=== PATIENT | female | born 1945 | race Caucasian/White ===

== ENCOUNTER 2017-06-17 08:32 | Inpatient (IN) ==
--- NOTE | 2017-06-17 09:31 | Emergency Department Note ---
Disposition Clinical Impression: Acute exacerbation of chronic obstructive airways disease, Bronchitis Disposition: Admitted As Inpatient Condition: Fair Referrals: Arlene Pearl, COPING MACHINE ASSEMBLER [Primary Care Provider] - Forms: ED Satisfaction Letter Time of Disposition: 11:09 SOB HPI - General Chief Complaint: ED Shortness of Breath/Dyspnea Stated Complaint: PRIYANK Time Seen by Provider: 06/17/17 09:20 Source: patient, family Mode of arrival: ambulatory Limitations: no limitations Nursing Notes Reviewed: Yes Vital Signs Reviewed: Yes - History of Present Illness Patient is a 71-year-old female a past medical history COPD, CHF, CAD and hypertension that presents the ED with chief complaint increase shortness of breath and productive cough x 5 days. Patient states "I think I have pneumonia" . States identical symptoms previously with pneumonia. States she has been coughing up yellow/green sputum. She denies any fever or chills. She denies any chest pain, weakness, diaphoresis, nausea, vomiting, abdominal pain or any other symptoms/complaints. Patient states she has been exposed to sick people at the store. Patient states she has been using her albuterol inhaler every 4 hours at home which has not helped her shortness of breath. Patient also states that she has been using oxygen for the past day or so secondary to increased shortness of breath. Patient states she is usually not on oxygen at home. Denies any history of PE or DVT. Pt Subjective Complaint: shortness of breath Onset (ago): day(s) Consistency/Duration: gradually worsening Improves with: nothing Worsens with: nothing Known history of: COPD, congestive heart failure Associated symptoms: Reports: denies other symptoms, cough, wheezing. Denies: chest pain, pain with inspiration, fever, sputum production, orthopnea, lower extremity pain, polyuria, polydipsia, parasthesias, palpitations, hemoptysis, diaphoresis, nausea/vomiting, syncope, abdominal pain, rash, sense of impending doom Treatment prior to arrival: oxygen, bronchodilator Cough present: Yes Cough Description: Involuntary Cough Frequency: Intermittent Sputum production: Yes Sputum Amount: Moderate Sputum Color: Green - Related Data Home oxygen amount: none Home Medications Medication Instructions Recorded Confirmed Budesonide/Formoterol 160/4.5 2 puff IH BID 07/22/16 06/17/17 [Symbicort 160/4.5] Carvedilol 12.5 mg PO BID 07/22/16 06/17/17 Furosemide [Lasix] 40 mg PO DAILY 07/22/16 06/17/17 Ipratropium/Albuterol Neb [Duoneb] 3 ml IH Q6H PRN 07/22/16 06/17/17 Lisinopril [Zestril] 10 mg PO DAILY 07/22/16 06/17/17 Potassium Chloride [Klor-Con 8 meq PO DAILY 07/22/16 06/17/17 Sprinkle] Ubidecarenone/Vitamin E Mixed 1 cap PO DAILY 07/22/16 06/17/17 [[id number] E 100 mg-10 Unit Sfg] BuPROPion SR (12 HR) [Wellbutrin 150 mg PO BID 06/17/17 06/17/17 SR] Allergies Allergy/AdvReac Type Severity Reaction Status Date / Time sulfamethoxazole Allergy Rash Verified 06/17/17 08:40 [From Bactrim] trimethoprim [From Bactrim] Allergy Rash Verified 06/17/17 08:40 codeine AdvReac Vomiting Verified 06/17/17 08:40 Hydromorphone [From Dilaudid] AdvReac Hallucinati Verified 06/17/17 08:40 ng All systems ED: reviewed and negative except as stated. Review of Systems: As Per HPI Constitutional: Denies: fever, chills, weakness Eyes: Denies: eye discharge, vision change ENT ED: Denies: throat pain, dental pain, congestion Cardiovascular: Denies: chest pain, palpitations, orthopnea, edema, syncope, paroxysmal nocturnal dyspnea Respiratory: Reports: cough, dyspnea, wheezes, sputum production. Denies: hemoptysis, stridor Gastrointestinal: Denies: abdominal pain, nausea, vomiting, diarrhea, constipation, hematemesis, melena, hematochezia Genitourinary: Denies: urgency, dysuria, frequency, hematuria Musculoskeletal: Denies: back pain, neck pain Integumentary: Denies: rash Neurological: Denies: headache Past Medical History - Past Medical History Source: patient Medical history: Reports: asthma, COPD, hypertension Surgical history: Reports: , orthopedic, other (Carpal tunnel, trigger finger release) Psychiatric history: Reports: anxiety EMBROIDERY SPECIALIST history: Reports: no EMBROIDERY SPECIALIST history - Social History Smoking Status: Light tobacco smoker Smokeless Tobacco Status: No Alcohol use: Reports: none Drug use: Reports: none Physical Exam - General Limitations: no limitations General appearance: alert, in no apparent distress - Head Head exam: atraumatic, normocephalic, normal inspection - Eye Eye exam: Present: normal appearance, PERRL, EOMI - ENT ENT exam: normal exam, normal oropharynx, mucous membranes moist, TM's normal bilaterally - Neck Neck exam: Present: normal inspection, full ROM, trachea midline. Absent: meningismus, lymphadenopathy - Chest Chest inspection: Present: normal inspection, symmetric chest wall rise - Respiratory Respiratory exam: Present: normal lung sounds bilaterally, wheezes. Absent: respiratory distress, stridor, accessory muscle use, prolonged expiratory phase - Cardiovascular Cardiovascular exam: Present: regular rate, normal rhythm, normal heart sounds - Abdominal Exam Abdominal exam: Present: soft, Non-Tender. Absent: tenderness, distention, guarding, rebound, rigidity - Extremities Exam Extremities exam: Present: normal inspection, full ROM. Absent: tenderness, pedal edema - Expanded Lower Extremity Exam Gait: observed and normal - Back Exam Back exam: Present: normal inspection, full ROM. Absent: tenderness - Neurological Exam Neurological exam: Present: alert, oriented X3, CN II-XII intact, normal gait - Psychiatric Psychiatric exam: Present: normal affect, normal mood - Skin Skin exam: Present: warm, dry, intact, normal color. Absent: rash, cyanosis, diaphoresis Course Course Narrative: Patient is a 71-year-old female a past medical history COPD, CHF, CAD and hypertension that presents the ED with chief complaint increase shortness of breath and productive cough x 5 days. Patient states "I think I have pneumonia" . States identical symptoms previously with pneumonia. States she has been coughing up yellow/green sputum. She denies any fever or chills. She denies any chest pain, weakness, diaphoresis, nausea, vomiting, abdominal pain or any other symptoms/complaints. Patient states she has been exposed to sick people at the store. Patient states she has been using her albuterol inhaler every 4 hours at home which has not helped her shortness of breath. Patient also states that she has been using oxygen for the past day or so secondary to increased shortness of breath. Patient states she is usually not on oxygen at home. Denies any history of PE or DVT. Patient is a nontoxic appearing 71-year-old female. Vital stable. Afebrile. Alert and oriented 3. Appears in no acute distress. Heart RRR. Lungs diffuse expiratory wheezing throughout bilateral lung brown. Decreased air movement. Abdomen soft, nontender. Extremities within normal limits. No pedal edema. Neuro no focal neurological deficits noted on exam. Plan to Obtain EKG, chest x-ray and labs. Breathing treatment and steroids ordered. Will reevaluate While patient ambulated to the bathroom she was 85% on room air. CXR:No acute cardiopulmonary process. Trop Negative. EKG sinus rhythm. No changes from previous EKG on 09/03/2016 Influenza A and B-. Mild improvement after steroids and 3 breathing treatments. Plan to admit to medicine for COPD exacerbation versus bronchitis/pneumonia. Levaquin started. Discussed case with hospitalist Dr. Null. He will accept patient. No other request at this time. Patient stable to be transferred to the floor. Pt agrees with treatment plan. Discussed case with Dr. Shipley. He had [id number] time with patient and agrees with my assessment and treatment plan. Vital Signs Temperature 99.1 F 06/17/17 08:37 Pulse Rate 97 06/17/17 08:37 Respiratory Rate 18 06/17/17 08:37 Blood Pressure 139/74 06/17/17 08:37 O2 Sat by Pulse Oximetry 96 06/17/17 08:37 Temperature 99.1 F 06/17/17 08:37 Pulse Rate 97 06/17/17 08:37 Respiratory Rate 18 06/17/17 08:37 Blood Pressure 139/74 06/17/17 08:37 O2 Sat by Pulse Oximetry 96 06/17/17 09:36 Oxygen Delivery Oxygen Delivery Nasal Cannula Shortness of Breath/Dyspnea - Medical Records Medical records reviewed: Yes I reviewed the patient's medical records. - Lab Data Lab results reviewed: Yes I reviewed the patient's lab results. Result diagrams: 06/17/17 09:27 06/17/17 09:27 Lab Results 06/17/17 06/17/17 06/17/17 Range/Units 09:27 09:27 09:27 WBC 10.6 (4.3-11.1) K/mcL RBC 4.47 (3.82-4.97) M/mcL Hgb 13.7 (11.5-15.4) g/dL Hct 40.6 (35.3-44.9) % MCV 90.8 (83.0-100.0) fL MCH 30.6 (28.0-33.3) pg MCHC 33.7 (31.6-35.5) g/dL RDW 13.1 (11.5-14.5) % Plt Count 262 (140-400) K/mcL MPV 9.2 L (9.4-12.4) fL Seg Neutrophils % 48.0 % Band Neutrophils % 20.0 H (0-4) % Lymphocytes % 18.0 % Monocytes % 12.0 % Basophils % 2.0 % Neutrophils # 7.2 (1.6-8.9) K/mcL Lymphocytes # 1.9 (0.6-4.6) K/mcL Monocytes # 1.3 (0.0-1.3) K/mcL Basophils # 0.2 (0.0-0.2) K/mcL Nucleated RBCs/100 WBC 0.2 H (0) /100 WBC Platelet Estimate Normal (Normal) Sodium 132 L (136-145) mEq/L Potassium 4.3 (3.5-5.1) mEq/L Chloride 99 (98-107) mEq/L Carbon Dioxide 24 (23-29) mEq/L BUN 8 (8-23) mg/dL Creatinine 0.56 L (0.60-1.20) mg/dL Est GFR ( Amer) > 60 (> 60) Est GFR (Non-Af Amer) > 60 (> 60) BUN/Creatinine Ratio 14 (6-26) Glucose 141 H (70-105) mg/dL Calculated Osmolality 275 L (280-300) Lactic Acid 1.0 (0.5-2.2) mmol/L Calcium 9.1 (8.6-10.3) mg/dL Troponin I (< 0.04) ng/mL B-Natriuretic Peptide (Less than 100) pg/mL 06/17/17 06/17/17 Range/Units 09:27 09:27 WBC (4.3-11.1) K/mcL RBC (3.82-4.97) M/mcL Hgb (11.5-15.4) g/dL Hct (35.3-44.9) % MCV (83.0-100.0) fL MCH (28.0-33.3) pg MCHC (31.6-35.5) g/dL RDW (11.5-14.5) % Plt Count (140-400) K/mcL MPV (9.4-12.4) fL Seg Neutrophils % % Band Neutrophils % (0-4) % Lymphocytes % % Monocytes % % Basophils % % Neutrophils # (1.6-8.9) K/mcL Lymphocytes # (0.6-4.6) K/mcL Monocytes # (0.0-1.3) K/mcL Basophils # (0.0-0.2) K/mcL Nucleated RBCs/100 WBC (0) /100 WBC Platelet Estimate (Normal) Sodium (136-145) mEq/L Potassium (3.5-5.1) mEq/L Chloride (98-107) mEq/L Carbon Dioxide (23-29) mEq/L BUN (8-23) mg/dL Creatinine (0.60-1.20) mg/dL Est GFR ( Amer) (> 60) Est GFR (Non-Af Amer) (> 60) BUN/Creatinine Ratio (6-26) Glucose (70-105) mg/dL Calculated Osmolality (280-300) Lactic Acid (0.5-2.2) mmol/L Calcium (8.6-10.3) mg/dL Troponin I 0.03 (< 0.04) ng/mL B-Natriuretic Peptide 487 H (Less than 100) pg/mL - Radiology Data Radiology results reviewed: Yes I reviewed the patient's radiology results.
[2017-06-17 09:40] LABS: Hematocrit 40.6 % (35.3-44.9); Hemoglobin 13.7 g/dL (11.5-15.4); Mean Corpuscular HGB Conc 33.7 g/dL (31.6-35.5); Mean Corpuscular Hemoglobin 30.6 pg (28.0-33.3); Mean Corpuscular Volume 90.8 fL (83.0-100.0); Mean Platelet Volume 9.2 fL (9.4-12.4); Nucleated Red Blood Cells 0.2 /100 WBC (0); Platelet Count 262 K/mcL (140-400); Red Blood Count 4.47 M/mcL (3.82-4.97); Red Cell Distribution Width 13.1 % (11.5-14.5)
[2017-06-17 09:52] LABS: BUN/Creatinine Ratio 14 (6-26); Blood Urea Nitrogen 8 mg/dL (8-23); Calcium 9.1 mg/dL (8.6-10.3); Carbon Dioxide 24 mEq/L (23-29); Chloride 99 mEq/L (98-107); Glucose 141 mg/dL (70-105); Osmolality,Calculated 275 (280-300); Potassium 4.3 mEq/L (3.5-5.1); Sodium 132 mEq/L (136-145); eGFR For African Americans > 60 (> 60); eGFR For Non-African Americans > 60 (> 60)
[2017-06-17 09:56] LABS: Basophils # 0.2 K/mcL (0.0-0.2); Lymphocytes # 1.9 K/mcL (0.6-4.6); Monocytes # 1.3 K/mcL (0.0-1.3); Neutrophils # 7.2 K/mcL (1.6-8.9)
[2017-06-17 09:57] LABS: Platelet Estimate Normal (Normal)
[2017-06-17] MEDS ORDERED: Ipratropium/Albuterol Neb 3 ML IH ONE (10:06)
[2017-06-17] MEDS ORDERED: methylPREDNISolone 125 MG/2 ML VIAL IVP ONE (10:06)
[2017-06-17] MEDS ORDERED: Levofloxacin 750 MG/150 ML 750 MG/150 ML BAG IVPB SCH (11:00)
[2017-06-17] MEDS ORDERED: Ondansetron 4 MG/2 ML VIAL IVP PRN (11:01)
[2017-06-17] MEDS ORDERED: *HR* Promethazine 25 MG/ML VIAL IVP PRN (11:01)
[2017-06-17] MEDS ORDERED: *HR* HYDROcodone/Acet 5/325 mg TABLET PO PRN (11:01)
[2017-06-17] MEDS ORDERED: Naloxone 0.4 MG/ML INJ IVP PRN (11:01)
[2017-06-17] MEDS ORDERED: Acetaminophen 325 MG TABLET PO PRN (11:01)
[2017-06-17] MEDS: Ipratropium/Albuterol Neb 3 ML IH SCH ×4 (11:33→23:49)
--- NOTE | 2017-06-17 12:23 | Internal Med History&Physical ---
Date of Encounter: 06/17/17 Time of Encounter: 11:30 Assessment and Plan (1) Acute exacerbation of chronic obstructive airways disease Current visit: Yes Status: Acute Will admit the pt into Med Surg She does have acute purulent bronchitis will start her on empirical abx Levaquin Cont Duoneb JANA + O2 Will try to wean her off the as she tolerated does need high dose IV steroids Reviewed CXR - no infiltrates / consolidations noticed (2) Bronchitis Current visit: Yes Status: Acute mostly bacterial on abx check Sputum cx, Resp viral panel (3) CHF (congestive heart failure) Current visit: Yes Status: Acute she might have chronic CHF..unspecified..No old Echo's to review does take Coreg + lasix at home not in exacerbation however she does have significantly elevated BNP cont PO lasix for now will check 2 D Echo in AM Qualifiers: Heart failure type: unspecified Qualified Code(s): I50.9 - Heart failure, unspecified (4) HTN (hypertension) Current visit: Yes Status: Acute resumed home meds Qualifiers: Hypertension type: essential hypertension Qualified Code(s): I10 - Essential (primary) hypertension (5) Tobacco dependence Current visit: Yes Status: Acute counseled to quit smoking on nicotine patch Internal Medicine - H&P: HPI Chief complaint: Shortness of breath Admitted From: Emergency Dept Plans for Post Hospital Care: Home History of present illness: Ms. Rose is a 71 year old female with known COPD, hypertension, ?? CHF, chronic tobacco dependence and not on home oxygen dependent patient present at emergency room with a progressively worsening shortness of breath since Friday associated with cough and expectoration. She denied any chest pain. She does have cough with yellowish expectoration. She denied any sick contacts at home. She denied any recent travel history. She got pneumonia vaccination this year but denied of taking flu vaccination Past Med Surg Social Fam HX - Past Medical History Medical history: asthma, COPD, hypertension Psychiatric history: anxiety - Past Surgical History Surgical History: , orthopedic, other (Carpal tunnel, trigger finger release) - Social History Smoking Status: Current every day smoker Smokeless Tobacco Status: No Alcohol use: none Drug use: none - Additional Family History Additional family history: Family hsitory reviewed and non contribuitory to current problem. Denied any COPD/lung cancer in the family Internal Medicine - H&P: Meds Budesonide/Formoterol 160/4.5 [Symbicort 160/4.5] 2 puff IH BID 07/22/16 [ History] Carvedilol 12.5 mg PO BID 07/22/16 [History] Furosemide [Lasix] 40 mg PO DAILY 07/22/16 [History] Ipratropium/Albuterol Neb [Duoneb] 3 ml IH Q6H PRN 07/22/16 [History] Lisinopril [Zestril] 10 mg PO DAILY 07/22/16 [History] Potassium Chloride [Klor-Con Sprinkle] 8 meq PO DAILY 07/22/16 [History] Ubidecarenone/Vitamin E Mixed [[id number] E 100 mg-10 Unit Sfg] 1 cap PO DAILY [History] BuPROPion SR (12 HR) [Wellbutrin SR] 150 mg PO BID 06/17/17 [History] 3 Allergy/AdvReac Type Severity Reaction Status Date / Time sulfamethoxazole Allergy Rash Verified 06/17/17 08:40 [From Bactrim] trimethoprim [From Bactrim] Allergy Rash Verified 06/17/17 08:40 codeine AdvReac Vomiting Verified 06/17/17 08:40 Hydromorphone [From Dilaudid] AdvReac Hallucinati Verified 06/17/17 08:40 ng All Systems PM: A 10-system review of systems was performed and is negative for pertinent findings except as documented above in the HPI. Review of systems: All the systems are reviewed everything is benign except the systems and symptoms I mentioned in the history of present illness - Constitutional Vitals: Temp Pulse Resp BP Pulse Ox 99.1 F 120 20 107/65 98 06/17/17 08:37 06/17/17 11:27 06/17/17 11:27 06/17/17 11:27 06/17/17 11:27 General appearance: Present: cooperative, mild distress, A&O X 3, answers questions appropriately Exam: Able to finish full sentence with few pauses - Head Head exam: Present: atraumatic, normal inspection - Neck Neck exam general surgery: Present: supple - Respiratory Respiratory exam: Present: decreased breath sounds, respiratory distress, wheezes (diffuse, severe). Absent: rales, rhonchi - Cardiovascular Cardiovascular exam: Present: +S1, +S2, tachycardia. Absent: systolic murmur - GI/Abdominal GI/Abdominal exam: Present: normal bowel sounds, soft. Absent: distended, rebound, rigid, no peritoneal signs - Extremities Exam Extremities exam: Absent: calf tenderness, pedal edema, tenderness - Back Exam Back exam: Absent: CVA tenderness (L), CVA tenderness (R) - Neurological Exam Neurological exam: Present: alert, oriented X3 - Psychiatric Psychiatric exam: Present: anxious - Skin Skin exam: Absent: rash Internal Med - H&P Results - Labs CBC & Chem 7: 06/17/17 09:27 06/17/17 09:27 Labs: Short CBC 06/17/17 Range/Units 09:27 WBC 10.6 (4.3-11.1) K/mcL Hgb 13.7 (11.5-15.4) g/dL Hct 40.6 (35.3-44.9) % Plt Count 262 (140-400) K/mcL Neutrophils # 7.2 (1.6-8.9) K/mcL BMP 06/17/17 09:27 Sodium 132 L Potassium 4.3 Chloride 99 Carbon Dioxide 24 BUN 8 Creatinine 0.56 L Glucose 141 H Calcium 9.1 Cardiac Enzymes 06/17/17 Range/Units 09:27 Troponin I 0.03 (< 0.04) ng/mL - Impressions ITS Impressions Chest X-Ray 06/17/17 08:41 IMPRESSION: No acute cardiopulmonary process. D/ / 06/17/2017 09:30:03 Neil Garza MD / rylan Interpreting Provider: Neil Garza MD
[2017-06-17] MEDS: Furosemide 40 MG TABLET PO SCH (13:19)
[2017-06-17 15:58] LABS: Adenovirus Not Detected (Not Detect); Bordetella Pertussis Not Detected (Not Detect); Chlamydophila pneumoniae Not Detected (Not Detect); Coronavirus 229E Not Detected (Not Detect); Coronavirus HKU1 Not Detected (Not Detect); Coronavirus NL63 Not Detected (Not Detect); Coronavirus OC43 Not Detected (Not Detect); Human Metapneumovirus Not Detected (Not Detect); Human Rhinovirus/Enterovirus Not Detected (Not Detect); Influenza A Subtype 2009 H1 Not Detected (Not Detect); Influenza A Untypeable Not Detected (Not Detect); Influenza B Not Detected (Not Detect); Mycoplasma pneumoniae Not Detected (Not Detect); Parainfluenza Virus 1 Not Detected (Not Detect); Parainfluenza Virus 2 Not Detected (Not Detect); Parainfluenza Virus 3 Not Detected (Not Detect); Parainfluenza Virus 4 Not Detected (Not Detect); Respiratory Syncytial Virus Not Detected (Not Detect)
[2017-06-17] MEDS: MethylPREDNISolone 40 MG/ML VIAL IVP SCH ×2 (19:26→23:56)
[2017-06-17] MEDS: Budesonide/Formoterol 160/4.5 MDI IH SCH (19:32)
[2017-06-17] MEDS: BuPROPion SR (12 HR) 150 MG TABLET PO SCH (21:22)
[2017-06-18] MEDS: Ipratropium/Albuterol Neb 3 ML IH SCH ×6 (04:27→23:29)
[2017-06-18] MEDS: MethylPREDNISolone 40 MG/ML VIAL IVP SCH ×4 (06:06→23:37)
[2017-06-18] MEDS: *HR* Enoxaparin 40 MG/0.4 ML SYRINGE SQ SCH (06:08)
[2017-06-18 07:04] LABS: Basophils % 0.1 %; Hematocrit 39.5 % (35.3-44.9); Hemoglobin 13.1 g/dL (11.5-15.4); Immature Granulocytes % 0.5 % (0-4); Lymphocytes # 1.1 K/mcL (0.6-4.6); Lymphocytes % 13.8 %; Mean Corpuscular HGB Conc 33.2 g/dL (31.6-35.5); Mean Corpuscular Volume 90.6 fL (83.0-100.0); Mean Platelet Volume 9.4 fL (9.4-12.4); Monocytes # 0.6 K/mcL (0.0-1.3); Neutrophils # 6.3 K/mcL (1.6-8.9); Platelet Count 274 K/mcL (140-400); Red Blood Count 4.36 M/mcL (3.82-4.97); Red Cell Distribution Width 12.9 % (11.5-14.5); Segmented Neutrophils % 78.6 %
[2017-06-18 07:29] LABS: BUN/Creatinine Ratio 20 (6-26); Blood Urea Nitrogen 12 mg/dL (8-23); Calcium 9.4 mg/dL (8.6-10.3); Carbon Dioxide 29 mEq/L (23-29); Chloride 97 mEq/L (98-107); Glucose 184 mg/dL (70-105); Osmolality,Calculated 281 (280-300); Potassium 5.3 mEq/L (3.5-5.1); Sodium 133 mEq/L (136-145); eGFR For African Americans > 60 (> 60); eGFR For Non-African Americans > 60 (> 60)
[2017-06-18] MEDS: Budesonide/Formoterol 160/4.5 MDI IH SCH ×2 (07:44→20:12)
[2017-06-18] MEDS: BuPROPion SR (12 HR) 150 MG TABLET PO SCH ×2 (09:12→21:35)
[2017-06-18] MEDS: Furosemide 40 MG TABLET PO SCH (09:12)
[2017-06-18] MEDS: Levofloxacin 750 MG/150 ML 750 MG/150 ML BAG IVPB SCH (09:13)
[2017-06-18] MEDS: VITAMIN E MIXED PO SCH (09:13)
[2017-06-18] MEDS: UBIDECARENONE PO SCH (09:13)
--- NOTE | 2017-06-18 15:07 | Internal Med Progress Note ---
Date of Encounter: 06/18/17 Time of Encounter: 15:05 - Assessment and plan (1) Acute exacerbation of chronic obstructive airways disease Current Visit: Yes Status: Acute Assessment and plan: Patient remains an exacerbation of his known COPD. Continue IV steroids, Acedontrell's Follow-up with pulmonary as an outpatient. She is requesting to be set up with a pulmonary group closer to her home. O2 to maintain sats greater than 88% she is on no home oxygen. She is currently on 3 L. (2) Bronchitis Current Visit: Yes Status: Acute Assessment and plan: Acute purulent bacterial bronchitis Continue Levaquin Tessalon for her cough Influenza-type A-V panel is negative Sputum did not meet acceptability criteria for culture Legionella and S pneumoniae antigens are negative Chest x-ray reported as no acute cardiopulmonary process Respiratory infectious panel negative (3) CHF (congestive heart failure) Current Visit: Yes Status: Acute Assessment and plan: Coreg and Lasix at home Not in exacerbation BNP was elevated at 487 and rechecked at 534. Systolic/diastolic CHF Continue Lasix 40 by mouth daily which she takes at home. Echocardiogram reviewed with LVEF 45-50%, mild global LV systolic dysfunction, diastolic dysfunction with elevated filling pressures. Normal right ventricular structure and function Mild mitral, tricuspid regurgitation No pulmonary hypertension All wall segments showed normal motion Qualifiers: Heart failure type: unspecified Qualified Code(s): I50.9 - Heart failure, unspecified (4) HTN (hypertension) Current Visit: Yes Status: Acute Assessment and plan: Blood pressure is stable, continue home medications Qualifiers: Hypertension type: essential hypertension Qualified Code(s): I10 - Essential (primary) hypertension (5) Tobacco dependence Current Visit: Yes Status: Acute Assessment and plan: Looking cessation advised Continue nicotine patch (6) DVT prophylaxis Current Visit: Yes Status: Acute Assessment and plan: lovenox - Subjective Interval history: Patient really thought she should go home today but after a discussion she has agreed to stay for 1 more day. She denies any chest pain. She states her shortness of breath is getting better. She thinks her lungs overall are little better but not back to her baseline yet. She is also complaining about being a little bit dry and asked the nurse to having a bag of saline. Explained she is on Lasix for some volume overload. - Constitutional Vitals: Temp Pulse Resp BP Pulse Ox 98.8 F 91 14 128/73 95 06/18/17 11:28 06/18/17 11:28 06/18/17 11:28 06/18/17 11:28 06/18/17 11:28 General appearance: Present: cooperative, mild distress, A&O X 3, pleasant, answers questions appropriately - Head Head exam: Present: atraumatic, normocephalic - Eye Eye exam: Present: PERRL, conjuntiva pink, sclera anicteric Pupils: Present: PERRL - Neck Neck exam general surgery: Present: supple, trachea midline. Absent: lymphadenopathy - Respiratory Respiratory exam: Present: decreased breath sounds, prolonged expiratory phase, wheezes. Absent: accessory muscle use, rales, rhonchi - Cardiovascular Cardiovascular exam: Present: RRR, +S1, +S2. Absent: diastolic murmur, gallop, rubs, systolic murmur - GI/Abdominal GI/Abdominal exam: Present: normal bowel sounds, soft, no peritoneal signs. Absent: distended, tenderness - Extremities Exam Extremities exam: Present: warm, radial pulses palpable and symmetrical. Absent : calf tenderness, cyanotic, pedal edema - Neurological Exam Neurological exam: Present: CN II-XII intact, oriented X3, no focal deficits. Absent: pronater drift, facial droop, speech deficit - Skin Skin exam: Present: dry, intact, warm Internal Medicine: Result - Labs CBC & Chem 7: 06/18/17 06:36 06/18/17 06:36 Labs: Short CBC 06/18/17 Range/Units 06:36 WBC 8.0 (4.3-11.1) K/mcL Hgb 13.1 (11.5-15.4) g/dL Hct 39.5 (35.3-44.9) % Plt Count 274 (140-400) K/mcL Neutrophils # 6.3 (1.6-8.9) K/mcL BMP 06/18/17 06:36 Sodium 133 L Potassium 5.3 H Chloride 97 L Carbon Dioxide 29 BUN 12 Creatinine 0.60 Glucose 184 H Calcium 9.4 Consult Discharge Plan - Plan Referrals: Arlene Pearl, CALENDER WORKER HELPER [Primary Care Provider] -
[2017-06-19] MEDS: Ipratropium/Albuterol Neb 3 ML IH SCH ×3 (03:43→11:27)
[2017-06-19] MEDS: MethylPREDNISolone 40 MG/ML VIAL IVP SCH ×2 (06:10→12:01)
[2017-06-19] MEDS: *HR* Enoxaparin 40 MG/0.4 ML SYRINGE SQ SCH (06:10)
[2017-06-19] MEDS: Budesonide/Formoterol 160/4.5 MDI IH SCH (07:54)
[2017-06-19] MEDS: Levofloxacin 750 MG/150 ML 750 MG/150 ML BAG IVPB SCH (09:03)
[2017-06-19] MEDS: Furosemide 40 MG TABLET PO SCH (09:04)
[2017-06-19] MEDS: VITAMIN E MIXED PO SCH (09:04)
[2017-06-19] MEDS: BuPROPion SR (12 HR) 150 MG TABLET PO SCH (09:04)
[2017-06-19] MEDS: UBIDECARENONE PO SCH (09:04)
[2017-06-19 09:59] LABS: BUN/Creatinine Ratio 25 (6-26); Blood Urea Nitrogen 18 mg/dL (8-23); Calcium 9.6 mg/dL (8.6-10.3); Carbon Dioxide 31 mEq/L (23-29); Chloride 95 mEq/L (98-107); Glucose 206 mg/dL (70-105); Osmolality,Calculated 286 (280-300); Potassium 4.4 mEq/L (3.5-5.1); Sodium 134 mEq/L (136-145); eGFR For African Americans > 60 (> 60); eGFR For Non-African Americans > 60 (> 60)
[2017-06-19 11:22] VITALS: BP 134/71
--- NOTE | 2017-06-19 11:24 | Discharge Summary ---
Date of Encounter: 06/19/17 Time of Encounter: 11:22 - Discharge Diagnosis (1) Acute exacerbation of chronic obstructive airways disease Priority: Primary Status: Acute Comments: Patient an exacerbation of known COPD. Switch to prednisone taper, has home nebulizer and DuoNeb's Follow-up with pulmonary as an outpatient. She is requesting to be set up with a pulmonary group closer to her home. O2 to maintain sats greater than 88% she has home oxygen. She is currently on 3 L. (2) Bronchitis Priority: Primary Status: Acute Comments: Acute purulent bacterial bronchitis Continue Levaquin to complete 7 day course Tessalon for her cough Influenza-type A-V panel is negative Sputum did not meet acceptability criteria for culture Legionella and S pneumoniae antigens are negative Chest x-ray reported as no acute cardiopulmonary process Respiratory infectious panel negative (3) CHF (congestive heart failure) Priority: Secondary Status: Chronic Comments: Coreg and Lasix - continue as at home Not in exacerbation BNP was elevated at 487 and rechecked at 534. Systolic/diastolic CHF Continue Lasix 40 by mouth daily Echo reviewed with diastoloic and systolic dysfunction LVEF 45 to 50% Qualifiers: Heart failure type: combined systolic and diastolic Heart failure chronicity: chronic Qualified Code(s): I50.42 - Chronic combined systolic ( congestive) and diastolic (congestive) heart failure (4) HTN (hypertension) Priority: Secondary Status: Chronic Comments: blood pressure stable, 134/71 Qualifiers: Hypertension type: essential hypertension Qualified Code(s): I10 - Essential (primary) hypertension (5) Tobacco dependence Priority: Secondary Status: Chronic Comments: cessation Hospital course: Ms. Rose is a 71 year old female with known COPD, hypertension, systolic diastolic CHF, chronic tobacco dependence and home oxygen dependence at 3 L nasal cannula. Patient presented to the emergency room with progressively worsening shortness of breath since Friday associated with cough and expectoration of thick yellow sputum. She had no chest pain. She denied any sick contacts at home or recent travel. She got her pneumonia vaccination but denied taking a flu vaccine. She was treated for a flare of COPD and acute bronchitis. She will be discharged on Levaquin to complete a 7 day course. She will also be sent home on a prednisone taper. She has a home nebulizer and home oxygen at this time. She requires no home health services. She will follow up with pulmonary in her primary care doctor as appointments have been set. Smoking cessation and she states she only smokes a few cigarettes a day. She said it is much better than her previous one pack per day. She is anxious for discharge. Reviewed labs and echocardiogram report with the patient. Discharge discussed with: patient, nurse, case management Time spent discussing smoking cessation with patient: 3 to 10 minutes - Time Spent with Patient Total time spent providing and/or coordinating discharge services: Less than 30 minutes - Discharge Medications Prescriptions: Levofloxacin [Levaquin] 750 mg PO DAILY 5 Days #5 tablet predniSONE [PredniSONE] 10 mg PO DAILY #30 tablet Home Medications: Budesonide/Formoterol 160/4.5 [Symbicort 160/4.5] 2 puff IH BID 07/22/16 [ History] Carvedilol 12.5 mg PO BID 07/22/16 [History] Furosemide [Lasix] 40 mg PO DAILY 07/22/16 [History] Ipratropium/Albuterol Neb [Duoneb] 3 ml IH Q6H PRN 07/22/16 [History] Lisinopril [Zestril] 10 mg PO DAILY 07/22/16 [History] Potassium Chloride [Klor-Con Sprinkle] 8 meq PO DAILY 07/22/16 [History] Ubidecarenone/Vitamin E Mixed [Rnh11-Zmp E 100 mg-10 Unit Sfg] 1 cap PO DAILY [History] BuPROPion SR (12 HR) [Wellbutrin SR] 150 mg PO BID 06/17/17 [History] Levofloxacin [Levaquin] 750 mg PO DAILY 5 Days #5 tablet 06/19/17 [Rx] predniSONE [PredniSONE] 10 mg PO DAILY #30 tablet 06/19/17 [Rx] Allergies/Adverse Reactions: 3 Allergy/AdvReac Type Severity Reaction Status Date / Time sulfamethoxazole Allergy Rash Verified 06/17/17 08:40 [From Bactrim] trimethoprim [From Bactrim] Allergy Rash Verified 06/17/17 08:40 codeine AdvReac Vomiting Verified 06/17/17 08:40 Hydromorphone [From Dilaudid] AdvReac Hallucinati Verified 06/17/17 08:40 ng Date of admission: 06/17/17 12:36 Primary care physician: Ali N Houston, HOSPITAL [employer]ITY OFFICER Discharging clinician: Swapna Lopez Anticipated date of discharge: 06/19/17 - Constitutional Vitals: Temp Pulse Resp BP Pulse Ox 98.7 F 79 16 110/64 94 06/19/17 07:16 06/19/17 07:16 06/19/17 07:56 06/19/17 07:16 06/19/17 07:56 General appearance: Present: cooperative, A&O X 3, pleasant, answers questions appropriately - Head Head exam: Present: atraumatic, normocephalic - Eye Eye exam: Present: PERRL, conjuntiva pink, sclera anicteric Pupils: Present: PERRL - Neck Neck exam general surgery: Present: supple, trachea midline. Absent: lymphadenopathy - Respiratory Respiratory exam: Present: decreased breath sounds, CTAB. Absent: accessory muscle use, rales, rhonchi, wheezes - Cardiovascular Cardiovascular exam: Present: RRR, +S1, +S2. Absent: diastolic murmur, gallop, rubs, systolic murmur - GI/Abdominal GI/Abdominal exam: Present: normal bowel sounds, soft, no peritoneal signs. Absent: distended, tenderness - Extremities Exam Extremities exam: Present: warm, radial pulses palpable and symmetrical. Absent : calf tenderness, cyanotic, pedal edema, tenderness - Neurological Exam Neurological exam: Present: alert, CN II-XII intact, normal gait, oriented X3, no focal deficits. Absent: pronater drift, facial droop, speech deficit - Skin Skin exam: Present: dry, intact, warm - Patient Status Disposition: Home, Self-Care Condition: Good Functional capacity at discharge: independent ambulation Overall status at discharge: patient is progressing back to baseline - Discharge Instructions Follow Up With: [facility] [Provider Group] - 07/24/17 2:30 pm Arlene Pearl CNP [Primary Care Provider] - 06/27/17 10:30 am Additional Instructions: follow up with pulmonary, complete antibiotic and steroid course. follow up with cardiology as scheduled - Diet and Activity Activity: increase activity as tolerated, resume usual activities as tolerated Diet: advance to your usual diet
--- NOTE | 2017-06-19 20:16 | Electrocardiograph Report ---
[address] [place] [address] Test Date: 2017-06-17 Pat Name: Denise Rose Department: [id number] Room: 3B33 Gender: F Battery Builder: MSC : [id number] Requested By: Adam Shipley Order Number: [id number] Reading MD: Elizabeth Riggins Measurements Intervals [place] Rate: 92 P: 72 CT: 158 QRS: 56 QRSD: 77 T: 91 QT: 344 QTc: 394 Interpretive Statements SINUS RHYTHM POSSIBLE LEFT ATRIAL ENLARGEMENT SEPTAL MYOCARDIAL INFARCTION, PROBABLY OLD Electronically Signed On 06-19-2017 20:14:14 EST by Elizabeth Riggins
[2017-06-21] MEDS ORDERED: Levofloxacin 750 MG/150 ML 750 MG/150 ML BAG IVPB SCH (09:00)
== END 2017-06-19 14:02 | disposition home or self-care (01) | DRG 191 ==
LOC: EMEROO 08:32 → 3BNU 12:36
PROVIDERS: ADMIT Registered Nurse; ATTEND Registered Nurse

== ENCOUNTER 2021-04-28 22:28 | Inpatient (IN) ==
[2021-04-29] MEDS ORDERED: Artificial Tears SOLN 15 ML BOTTLE BOTH EYES PRN (04:54)
[2021-04-29] MEDS: FentaNYL (PF) 1,000 MCG/100 ML IV.SOLN IVC SCH ×2 (05:36→19:43)
[2021-04-29] MEDS ORDERED: Perflutren Lipid Microsphere 1.3 ML in 0.9 % Sodium Chloride 8.7 ML IVP PRN ×2 (05:36→05:54)
[2021-04-29 05:37] LABS: ABG Base Excess 8 mEq/L (-2 to 3); ABG HCO3 32 mEq/L (21-27); ABG Oxygen Saturation 100 % (95-98); ABG PCO2 41 mmHg (35-45); ABG PO2 172 mmHg (85-104); ABG TCO2 33 mEq/L (20-26); Blood Gas VT 420 cc
[2021-04-29 05:56] LABS: VBG Ionized Calcium 1.11 mmol/L (1.15-1.35)
[2021-04-29 06:00] LABS: Basophils % 0.1 %; Hematocrit 39.8 % (35.3-44.9); Hemoglobin 12.6 g/dL (11.5-15.4); Immature Granulocytes % 0.3 % (0-4); Lymphocytes # 0.8 K/mcL (0.6-4.6); Lymphocytes % 7.6 %; Mean Corpuscular HGB Conc 31.7 g/dL (31.6-35.5); Mean Corpuscular Hemoglobin 30.7 pg (28.0-33.3); Mean Corpuscular Volume 97.1 fL (83.0-100.0); Mean Platelet Volume 9.8 fL (9.4-12.4); Monocytes # 0.8 K/mcL (0.0-1.3); Monocytes % 7.9 %; Neutrophils # 8.4 K/mcL (1.6-8.9); Platelet Count 195 K/mcL (140-400); Red Cell Distribution Width 14.6 % (11.5-14.5); Segmented Neutrophils % 84.1 %
[2021-04-29] MEDS: Pantoprazole 40 MG VIAL IVP SCH (06:04)
[2021-04-29 06:11] LABS: INR 1.7; Prothrombin Time 18.8 Seconds (9.4-12.1)
[2021-04-29] MEDS: Azithromycin 500 MG in 0.9 % Sodium Chloride 250 ML IVPB SCH (06:12)
[2021-04-29] MEDS: cefTRIAXone 1,000 MG in 0.9 % Sodium Chloride Mini Bag 100 ML IVPB SCH ×2 (06:12→18:51)
[2021-04-29 06:21] LABS: Creatine Kinase 41 Units/L (30-223)
[2021-04-29 07:06] LABS: Alanine Aminotransferase 16 Units/L (7-52); Albumin 3.4 g/dL (3.5-5.7); Albumin/Globulin Ratio 1.4 (1.1-2.2); Alkaline Phosphatase 51 Units/L (34-104); Aspartate Amino Transferase 22 Units/L (13-39); BUN/Creatinine Ratio 31 (6-26); Bilirubin,Direct 0.1 mg/dL (0.0-0.2); Bilirubin,Indirect 0.2 mg/dL (0.0-1.0); Bilirubin,Total 0.3 mg/dL (0.3-1.0); Blood Urea Nitrogen 23 mg/dL (8-23); Calcium 8.4 mg/dL (8.6-10.3); Carbon Dioxide 38 mEq/L (23-29); Chloride 102 mEq/L (98-107); Globulin 2.5 g/dL (2.4-3.5); Glucose 112 mg/dL (70-105); Lactate Dehydrogenase 190 Units/L (140-271); Osmolality,Calculated 292 (280-300); Potassium 4.5 mEq/L (3.5-5.1); Sodium 139 mEq/L (136-145); Total Protein 5.9 g/dL (6.4-8.9); eGFR For African Americans > 60 (> 60); eGFR For Non-African Americans > 60 (> 60)
[2021-04-29] MEDS: Artificial Tears SOLN 15 ML BOTTLE BOTH EYES SCH ×5 (08:34→23:03)
[2021-04-29] MEDS: Chlorhexidine Rinse 15 ML MOUTHWASH MM SCH ×2 (08:35→19:51)
[2021-04-29] MEDS: Dexamethasone Sodium Phos/PF 10 MG/ML VIAL IVP SCH (08:35)
[2021-04-29] MEDS: Furosemide 40 MG/4 ML VIAL IVP SCH (08:37)
[2021-04-29 09:01] LABS: Ferritin 348 ng/mL (10-120)
[2021-04-29] MEDS ORDERED: Albuterol 2.5 MG/3 ML NEBULIZER IH SCH (10:00)
[2021-04-29 10:05] LABS: C-Reactive Protein 101 mg/L (Less than 10)
[2021-04-29] MEDS: Budesonide/Formoterol 160/4.5 1 PUFF INH IH SCH ×2 (11:39→20:30)
[2021-04-29] MEDS ORDERED: *HR* Heparin 5,000 UNIT/ML VIAL IVP PRN ×2 (15:23)
[2021-04-29] MEDS ORDERED: *HR* Heparin 5,000 UNIT/ML VIAL IVP ONE (15:23)
[2021-04-29] MEDS: Albuterol 2.5 MG/3 ML NEBULIZER IH SCH ×2 (15:54→22:49)
[2021-04-29] MEDS: Heparin 25,000UNIT/250ML 1/2NS 25,000 UNIT/250 ML IV.SOLN IVC SCH (18:01)
[2021-04-29] MEDS: Midazolam HCl 50 MG/100 ML IV.SOLN IVC SCH ×2 (19:41→23:04)
[2021-04-29] MEDS: Norepinephrine 4 MG/254 ML IV.SOLN IVC SCH ×3 (19:41→23:04)
[2021-04-30] MEDS: Artificial Tears SOLN 15 ML BOTTLE BOTH EYES SCH ×6 (03:21→23:40)
[2021-04-30 03:30] LABS: Basophils % 0.2 %; Hematocrit 40.3 % (35.3-44.9); Hemoglobin 12.7 g/dL (11.5-15.4); Immature Granulocytes % 0.3 % (0-4); Lymphocytes # 0.8 K/mcL (0.6-4.6); Lymphocytes % 11.8 %; Mean Corpuscular HGB Conc 31.5 g/dL (31.6-35.5); Mean Corpuscular Hemoglobin 30.3 pg (28.0-33.3); Mean Corpuscular Volume 96.2 fL (83.0-100.0); Mean Platelet Volume 10.2 fL (9.4-12.4); Monocytes # 0.5 K/mcL (0.0-1.3); Monocytes % 7.2 %; Neutrophils # 5.3 K/mcL (1.6-8.9); Platelet Count 183 K/mcL (140-400); Red Blood Count 4.19 M/mcL (3.82-4.97); Red Cell Distribution Width 14.6 % (11.5-14.5); Segmented Neutrophils % 80.5 %; White Blood Count 6.6 K/mcL (4.3-11.1)
[2021-04-30 03:38] LABS: Heparin anti-factor XA UFH 0.47 IU/mL (0.30-0.70); INR 1.5; Prothrombin Time 16.6 Seconds (9.4-12.1)
[2021-04-30 03:40] LABS: Activated Partial Thrombo Time 61.7 Seconds (26.0-36.0)
[2021-04-30 03:51] LABS: BUN/Creatinine Ratio 46 (6-26); Blood Urea Nitrogen 35 mg/dL (8-23); Calcium 8.4 mg/dL (8.6-10.3); Carbon Dioxide 36 mEq/L (23-29); Chloride 102 mEq/L (98-107); Glucose 138 mg/dL (70-105); Magnesium 2.3 mg/dL (1.6-2.6); Osmolality,Calculated 300 (280-300); Potassium 4.5 mEq/L (3.5-5.1); Sodium 140 mEq/L (136-145); eGFR For African Americans > 60 (> 60); eGFR For Non-African Americans > 60 (> 60)
[2021-04-30 03:56] LABS: Troponin I 0.17 ng/mL (< 0.04)
[2021-04-30 04:45] LABS: ABG Base Excess 8 mEq/L (-2 to 3); ABG HCO3 35 mEq/L (21-27); ABG Oxygen Saturation 93 % (95-98); ABG PCO2 59 mmHg (35-45); ABG PH 7.39 pH Units (7.32-7.45); ABG PO2 72 mmHg (85-104); ABG TCO2 37 mEq/L (20-26); Blood Gas VT 340 cc
[2021-04-30] MEDS: cefTRIAXone 1,000 MG in 0.9 % Sodium Chloride Mini Bag 100 ML IVPB SCH (05:00)
[2021-04-30] MEDS: Azithromycin 500 MG in 0.9 % Sodium Chloride 250 ML IVPB SCH (05:01)
[2021-04-30] MEDS: Budesonide/Formoterol 160/4.5 1 PUFF INH IH SCH ×2 (07:26→20:48)
[2021-04-30] MEDS: Chlorhexidine Rinse 15 ML MOUTHWASH MM SCH ×2 (07:50→20:14)
[2021-04-30] MEDS: Dexamethasone Sodium Phos/PF 10 MG/ML VIAL IVP SCH (07:50)
[2021-04-30] MEDS: Furosemide 40 MG/4 ML VIAL IVP SCH (07:50)
[2021-04-30] MEDS: Pantoprazole 40 MG VIAL IVP SCH (07:51)
[2021-04-30] MEDS: Norepinephrine 4 MG/254 ML IV.SOLN IVC SCH (07:51)
[2021-04-30] MEDS ORDERED: Dexmedetomidine HCl 400 MCG/100 ML MLS IVC SCH (08:45)
[2021-04-30] MEDS: Dexmedetomidine HCl 400 MCG/100 ML MLS IVC SCH ×2 (10:18→15:00)
[2021-05-01] MEDS: FentaNYL (PF) 1,000 MCG/100 ML IV.SOLN IVC SCH ×2 (01:40→17:00)
[2021-05-01] MEDS: Heparin 25,000UNIT/250ML 1/2NS 25,000 UNIT/250 ML IV.SOLN IVC SCH (01:46)
[2021-05-01 04:09] LABS: ABG Base Excess 8 mEq/L (-2 to 3); ABG HCO3 36 mEq/L (21-27); ABG Oxygen Saturation 95 % (95-98); ABG PCO2 62 mmHg (35-45); ABG PH 7.37 pH Units (7.32-7.45); ABG PO2 78 mmHg (85-104); ABG TCO2 38 mEq/L (20-26); Blood Gas VT 340 cc
[2021-05-01 04:48] LABS: VBG Ionized Calcium 1.08 mmol/L (1.15-1.35)
[2021-05-01 04:49] LABS: Basophils % 0.3 %; Hematocrit 42.9 % (35.3-44.9); Hemoglobin 13.6 g/dL (11.5-15.4); Immature Granulocytes % 1.3 % (0-4); Lymphocytes % 16.6 %; Mean Corpuscular HGB Conc 31.7 g/dL (31.6-35.5); Mean Corpuscular Hemoglobin 30.4 pg (28.0-33.3); Mean Corpuscular Volume 95.8 fL (83.0-100.0); Mean Platelet Volume 10.1 fL (9.4-12.4); Monocytes # 0.7 K/mcL (0.0-1.3); Monocytes % 11.1 %; Neutrophils # 4.4 K/mcL (1.6-8.9); Platelet Count 161 K/mcL (140-400); Red Blood Count 4.48 M/mcL (3.82-4.97); Red Cell Distribution Width 14.4 % (11.5-14.5); Segmented Neutrophils % 70.7 %; White Blood Count 6.2 K/mcL (4.3-11.1)
[2021-05-01] MEDS: Artificial Tears SOLN 15 ML BOTTLE BOTH EYES SCH ×6 (04:52→23:13)
[2021-05-01 05:06] LABS: Calcium 8.4 mg/dL (8.6-10.3); Carbon Dioxide 36 mEq/L (23-29); Chloride 104 mEq/L (98-107); Glucose 164 mg/dL (70-105); Magnesium 2.4 mg/dL (1.6-2.6); Phosphorous 3.6 mg/dL (2.7-4.5); Potassium 4.1 mEq/L (3.5-5.1); Sodium 141 mEq/L (136-145); eGFR For African Americans > 60 (> 60); eGFR For Non-African Americans > 60 (> 60)
[2021-05-01 05:13] LABS: BUN/Creatinine Ratio 65 (6-26); Blood Urea Nitrogen 46 mg/dL (8-23); Osmolality,Calculated 308 (280-300)
[2021-05-01] MEDS: Azithromycin 500 MG in 0.9 % Sodium Chloride 250 ML IVPB SCH (06:00)
[2021-05-01] MEDS: Norepinephrine 4 MG/254 ML IV.SOLN IVC SCH ×4 (07:16→20:51)
[2021-05-01] MEDS: Midazolam HCl 50 MG/100 ML IV.SOLN IVC SCH (07:17)
[2021-05-01] MEDS: Budesonide/Formoterol 160/4.5 1 PUFF INH IH SCH ×3 (07:24→20:02)
[2021-05-01] MEDS: Chlorhexidine Rinse 15 ML MOUTHWASH MM SCH ×2 (08:08→20:02)
[2021-05-01] MEDS: Furosemide 40 MG/4 ML VIAL IVP SCH (08:09)
[2021-05-01] MEDS: cefTRIAXone 1,000 MG in 0.9 % Sodium Chloride Mini Bag 100 ML IVPB SCH (08:10)
[2021-05-01] MEDS: Pantoprazole 40 MG VIAL IVP SCH (08:10)
[2021-05-01] MEDS ORDERED: Dexamethasone Sodium Phos/PF 10 MG/ML VIAL IVP SCH (09:00)
[2021-05-01] MEDS ORDERED: Furosemide 20 MG/2 ML VIAL IVP ONE (09:10)
[2021-05-01 09:55] LABS: ABG Base Excess 8 mEq/L (-2 to 3); ABG HCO3 37 mEq/L (21-27); ABG Oxygen Saturation 89 % (95-98); ABG PCO2 71 mmHg (35-45); ABG PH 7.32 pH Units (7.32-7.45); ABG PO2 65 mmHg (85-104); ABG TCO2 39 mEq/L (20-26); Blood Gas Modality CPAP/PS; Blood Gas Pressure Support 8 cm H2O
[2021-05-01] MEDS: Ondansetron 4 MG/2 ML VIAL IVP PRN ×2 (15:30→23:21)
[2021-05-01] MEDS: *HR* Metoprolol 5 MG/5 ML VIAL IVP PRN ×2 (15:44→23:44)
[2021-05-01] MEDS ORDERED: *HR* Enoxaparin 40 MG/0.4 ML SYRINGE SQ ONE (16:00)
[2021-05-01] MEDS: Dexmedetomidine HCl 400 MCG/100 ML MLS IVC SCH (20:01)
[2021-05-02 04:18] LABS: VBG Ionized Calcium 1.08 mmol/L (1.15-1.35)
[2021-05-02 04:18] LABS: Basophils % 0.2 %; Hematocrit 41.7 % (35.3-44.9); Hemoglobin 13.1 g/dL (11.5-15.4); Immature Granulocytes % 1.1 % (0-4); Lymphocytes # 0.9 K/mcL (0.6-4.6); Lymphocytes % 10.3 %; Mean Corpuscular HGB Conc 31.4 g/dL (31.6-35.5); Mean Corpuscular Hemoglobin 30.2 pg (28.0-33.3); Mean Corpuscular Volume 96.1 fL (83.0-100.0); Mean Platelet Volume 10.4 fL (9.4-12.4); Monocytes # 0.9 K/mcL (0.0-1.3); Monocytes % 10.2 %; Neutrophils # 6.8 K/mcL (1.6-8.9); Platelet Count 169 K/mcL (140-400); Red Blood Count 4.34 M/mcL (3.82-4.97); Segmented Neutrophils % 78.2 %; White Blood Count 8.8 K/mcL (4.3-11.1)
[2021-05-02 04:33] LABS: BUN/Creatinine Ratio 59 (6-26); Blood Urea Nitrogen 41 mg/dL (8-23); Calcium 8.3 mg/dL (8.6-10.3); Carbon Dioxide 37 mEq/L (23-29); Chloride 101 mEq/L (98-107); Glucose 126 mg/dL (70-105); Magnesium 2.2 mg/dL (1.6-2.6); Osmolality,Calculated 308 (280-300); Phosphorous 2.8 mg/dL (2.7-4.5); Potassium 4.3 mEq/L (3.5-5.1); Sodium 143 mEq/L (136-145); eGFR For African Americans > 60 (> 60); eGFR For Non-African Americans > 60 (> 60)
[2021-05-02] MEDS: Midazolam HCl 50 MG/100 ML IV.SOLN IVC SCH (05:15)
[2021-05-02] MEDS: Artificial Tears SOLN 15 ML BOTTLE BOTH EYES SCH ×4 (05:16→21:35)
[2021-05-02] MEDS: Norepinephrine 4 MG/254 ML IV.SOLN IVC SCH ×2 (05:16→16:48)
[2021-05-02] MEDS: Azithromycin 500 MG in 0.9 % Sodium Chloride 250 ML IVPB SCH (05:26)
[2021-05-02] MEDS: *HR* Metoprolol 5 MG/5 ML VIAL IVP PRN (05:26)
[2021-05-02] MEDS ORDERED: *HR* Enoxaparin 40 MG/0.4 ML SYRINGE SQ SCH (06:00)
[2021-05-02] MEDS: Budesonide/Formoterol 160/4.5 1 PUFF INH IH SCH ×2 (07:41→19:56)
[2021-05-02] MEDS: cefTRIAXone 1,000 MG in 0.9 % Sodium Chloride Mini Bag 100 ML IVPB SCH (08:18)
[2021-05-02] MEDS: Pantoprazole 40 MG VIAL IVP SCH (08:20)
[2021-05-02] MEDS: Chlorhexidine Rinse 15 ML MOUTHWASH MM SCH (08:21)
[2021-05-02] MEDS: Calcium Gluconate 1gm/50mL 1 GM/50 ML BAG IVPB SCH ×2 (08:21→09:19)
[2021-05-02] MEDS ORDERED: Dexamethasone Sodium Phos/PF 10 MG/ML VIAL IVP SCH (09:00)
[2021-05-02] MEDS ORDERED: Furosemide 20 MG/2 ML VIAL IVP SCH (10:30)
[2021-05-02] MEDS ORDERED: Perflutren Lipid Microsphere 1.3 ML in 0.9 % Sodium Chloride 8.7 ML IVP PRN (10:45)
[2021-05-02] MEDS: Ipratropium/Albuterol Neb 3 ML IH SCH ×2 (11:41→15:10)
[2021-05-02] MEDS ORDERED: lisinopriL 5 MG TABLET PO SCH (11:45)
[2021-05-02] MEDS: FentaNYL (PF) 1,000 MCG/100 ML IV.SOLN IVC SCH (13:02)
[2021-05-02] MEDS: Dexmedetomidine HCl 400 MCG/100 ML MLS IVC SCH (13:02)
[2021-05-02] MEDS ORDERED: *HR* Metoprolol 5 MG/5 ML VIAL IVP PRN (17:24)
[2021-05-02] MEDS ORDERED: Ondansetron 4 MG/2 ML VIAL IVP PRN (17:24)
[2021-05-02] MEDS: Acetaminophen 325 MG TABLET PO PRN (19:53)
[2021-05-02] MEDS ORDERED: Ipratropium/Albuterol Neb 3 ML IH SCH (20:00)
[2021-05-03] MEDS: Melatonin 3 MG TABLET PO PRN ×2 (00:18→21:34)
[2021-05-03 04:56] LABS: Basophils % 0.2 %; Hematocrit 39.7 % (35.3-44.9); Hemoglobin 13.1 g/dL (11.5-15.4); Immature Granulocytes % 1.4 % (0-4); Lymphocytes % 10.5 %; Mean Corpuscular Hemoglobin 31.1 pg (28.0-33.3); Mean Corpuscular Volume 94.3 fL (83.0-100.0); Mean Platelet Volume 10.5 fL (9.4-12.4); Monocytes # 0.9 K/mcL (0.0-1.3); Monocytes % 9.9 %; Neutrophils # 7.5 K/mcL (1.6-8.9); Platelet Count 154 K/mcL (140-400); Red Blood Count 4.21 M/mcL (3.82-4.97); Red Cell Distribution Width 13.6 % (11.5-14.5); White Blood Count 9.5 K/mcL (4.3-11.1)
[2021-05-03 05:00] LABS: VBG Ionized Calcium 1.14 mmol/L (1.15-1.35)
[2021-05-03 05:10] LABS: BUN/Creatinine Ratio 49 (6-26); Blood Urea Nitrogen 32 mg/dL (8-23); Calcium 8.9 mg/dL (8.6-10.3); Carbon Dioxide 39 mEq/L (23-29); Chloride 99 mEq/L (98-107); Glucose 125 mg/dL (70-105); Osmolality,Calculated 290 (280-300); Phosphorous 2.9 mg/dL (2.7-4.5); Sodium 136 mEq/L (136-145); eGFR For African Americans > 60 (> 60); eGFR For Non-African Americans > 60 (> 60)
[2021-05-03] MEDS: *HR* Enoxaparin 40 MG/0.4 ML SYRINGE SQ SCH (05:48)
[2021-05-03] MEDS ORDERED: Azithromycin 500 MG in 0.9 % Sodium Chloride 250 ML IVPB SCH (06:00)
[2021-05-03] MEDS: Acetaminophen 325 MG TABLET PO PRN ×2 (06:15→14:25)
[2021-05-03] MEDS ORDERED: Perflutren Lipid Microsphere 1.3 ML in 0.9 % Sodium Chloride 8.7 ML IVP PRN (07:38)
[2021-05-03] MEDS: Budesonide/Formoterol 160/4.5 1 PUFF INH IH SCH ×2 (07:52→20:42)
[2021-05-03] MEDS ORDERED: cefTRIAXone 1,000 MG in 0.9 % Sodium Chloride Mini Bag 100 ML IVPB SCH (09:00)
[2021-05-03] MEDS ORDERED: Spironolactone 12.5 MG TABLET PO SCH (09:00)
[2021-05-03] MEDS ORDERED: dexAMETHasone 4 MG TABLET PO SCH (09:00)
[2021-05-03] MEDS: dexAMETHasone 4 MG TABLET PO SCH (09:14)
[2021-05-03] MEDS: Spironolactone 12.5 MG TABLET PO SCH (09:14)
[2021-05-03] MEDS: Furosemide 20 MG/2 ML VIAL IVP SCH (09:14)
[2021-05-03] MEDS: lisinopriL 5 MG TABLET PO SCH (09:15)
[2021-05-03 16:43] LABS: INR 1.5
[2021-05-03] MEDS ORDERED: Warfarin perPT PO PRN (18:00)
[2021-05-03] MEDS ORDERED: *HR* Warfarin 2.5 MG TABLET PO ONE (18:00)
[2021-05-03] MEDS: Cefuroxime PO 500 MG TABLET PO SCH (18:16)
[2021-05-04 03:41] LABS: Basophils % 0.1 %; Hematocrit 38.7 % (35.3-44.9); Hemoglobin 12.9 g/dL (11.5-15.4); Immature Granulocytes % 1.5 % (0-4); Lymphocytes % 11.8 %; Mean Corpuscular HGB Conc 33.3 g/dL (31.6-35.5); Mean Corpuscular Hemoglobin 31.2 pg (28.0-33.3); Mean Corpuscular Volume 93.7 fL (83.0-100.0); Mean Platelet Volume 10.6 fL (9.4-12.4); Monocytes # 0.8 K/mcL (0.0-1.3); Monocytes % 9.2 %; Neutrophils # 6.3 K/mcL (1.6-8.9); Platelet Count 155 K/mcL (140-400); Red Blood Count 4.13 M/mcL (3.82-4.97); Red Cell Distribution Width 13.6 % (11.5-14.5); Segmented Neutrophils % 77.4 %; White Blood Count 8.2 K/mcL (4.3-11.1)
[2021-05-04 03:49] LABS: INR 1.6; Prothrombin Time 17.5 Seconds (9.4-12.1)
[2021-05-04 04:10] LABS: BUN/Creatinine Ratio 44 (6-26); Blood Urea Nitrogen 25 mg/dL (8-23); Calcium 8.6 mg/dL (8.6-10.3); Carbon Dioxide 40 mEq/L (23-29); Chloride 98 mEq/L (98-107); Glucose 137 mg/dL (70-105); Osmolality,Calculated 283 (280-300); Phosphorous 2.5 mg/dL (2.7-4.5); Potassium 4.3 mEq/L (3.5-5.1); Sodium 133 mEq/L (136-145); eGFR For African Americans > 60 (> 60); eGFR For Non-African Americans > 60 (> 60)
[2021-05-04] MEDS: *HR* Enoxaparin 40 MG/0.4 ML SYRINGE SQ SCH (05:02)
[2021-05-04] MEDS: Cefuroxime PO 500 MG TABLET PO SCH ×2 (05:02→18:03)
[2021-05-04] MEDS: Budesonide/Formoterol 160/4.5 1 PUFF INH IH SCH ×2 (07:18→20:02)
[2021-05-04] MEDS: dexAMETHasone 4 MG TABLET PO SCH (07:29)
[2021-05-04] MEDS: Spironolactone 12.5 MG TABLET PO SCH (07:29)
[2021-05-04] MEDS: lisinopriL 5 MG TABLET PO SCH (07:29)
[2021-05-04] MEDS: Furosemide 20 MG/2 ML VIAL IVP SCH (07:30)
[2021-05-04] MEDS: Aspirin Enteric Coated 81 MG Tablet PO SCH (07:33)
[2021-05-04] MEDS ORDERED: Metoprolol XL (24 HR) Succ 25 MG TAB.ER.24H PO SCH (09:00)
[2021-05-04] MEDS ORDERED: *HR* Warfarin 2.5 MG TABLET PO ONE (18:00)
[2021-05-04] MEDS ORDERED: Menthol 1 EACH LOZENGE PO PRN (23:07)
[2021-05-05] MEDS: Melatonin 3 MG TABLET PO PRN (01:32)
[2021-05-05 02:28] LABS: Hemoglobin 13.2 g/dL (11.5-15.4); Mean Corpuscular HGB Conc 33.8 g/dL (31.6-35.5); Mean Corpuscular Hemoglobin 31.4 pg (28.0-33.3); Mean Corpuscular Volume 92.6 fL (83.0-100.0); Mean Platelet Volume 11.2 fL (9.4-12.4); Platelet Count 156 K/mcL (140-400); Red Blood Count 4.21 M/mcL (3.82-4.97); Red Cell Distribution Width 13.4 % (11.5-14.5); White Blood Count 8.7 K/mcL (4.3-11.1)
[2021-05-05 02:36] LABS: INR 1.7
[2021-05-05 02:45] LABS: Alanine Aminotransferase 14 Units/L (7-52); Albumin 3.5 g/dL (3.5-5.7); Albumin/Globulin Ratio 1.4 (1.1-2.2); Alkaline Phosphatase 40 Units/L (34-104); Aspartate Amino Transferase 18 Units/L (13-39); BUN/Creatinine Ratio 39 (6-26); Bilirubin,Total 0.8 mg/dL (0.3-1.0); Blood Urea Nitrogen 22 mg/dL (8-23); Calcium 8.7 mg/dL (8.6-10.3); Carbon Dioxide 38 mEq/L (23-29); Chloride 93 mEq/L (98-107); Globulin 2.5 g/dL (2.4-3.5); Glucose 148 mg/dL (70-105); Osmolality,Calculated 286 (280-300); Potassium 4.2 mEq/L (3.5-5.1); Sodium 135 mEq/L (136-145); eGFR For African Americans > 60 (> 60); eGFR For Non-African Americans > 60 (> 60)
[2021-05-05 02:46] LABS: C-Reactive Protein 23 mg/L (Less than 10); Lactate Dehydrogenase 319 Units/L (140-271)
[2021-05-05 02:51] LABS: Troponin I 0.05 ng/mL (< 0.04)
[2021-05-05 03:04] LABS: Ferritin 359 ng/mL (10-120)
[2021-05-05] MEDS: *HR* Enoxaparin 40 MG/0.4 ML SYRINGE SQ SCH (05:44)
[2021-05-05] MEDS: Cefuroxime PO 500 MG TABLET PO SCH (05:44)
[2021-05-05] MEDS: Budesonide/Formoterol 160/4.5 1 PUFF INH IH SCH (07:54)
[2021-05-05] MEDS: Spironolactone 12.5 MG TABLET PO SCH (08:14)
[2021-05-05] MEDS: Aspirin Enteric Coated 81 MG Tablet PO SCH (08:14)
[2021-05-05] MEDS: dexAMETHasone 4 MG TABLET PO SCH (08:14)
[2021-05-05] MEDS: Furosemide 20 MG/2 ML VIAL IVP SCH (08:14)
[2021-05-05] MEDS: lisinopriL 5 MG TABLET PO SCH (08:14)
[2021-05-05 11:24] VITALS: BP 128/67; PULSE 71; TEMP 97.9
[2021-05-05] MEDS ORDERED: Furosemide 40 MG TABLET PO SCH (13:30)
[2021-05-05] MEDS ORDERED: Azithromycin 250 MG TABLET PO SCH (13:30)
[2021-05-05 14:40] VITALS: O2SAT 95
[2021-05-05] MEDS ORDERED: *HR* Warfarin 2.5 MG TABLET PO ONE (18:00)
== END 2021-05-05 15:50 | disposition home health service (06) | DRG 208 ==
LOC: ICNU 04-29 04:39 → SUATTDRO 04-29 04:39 → 2NNU 05-01 21:58 → 3BNU 05-02 21:17
PROVIDERS: ADMIT Internal Medicine; ATTEND Family Medicine